=== PATIENT | female | born 1945 | race Caucasian/White ===

== ENCOUNTER 2016-08-24 02:26 | Inpatient (IN) | payer OTHER ==
--- NOTE | ~2016-08-24 | HP ---
History And Physical [address] [place]. [address] NAME: ROCHELLE SOLOMON : 41 STATUS : ADM IN [facility]#: [id number] AGE: 70 ADM/REG DATE : 08/24/16 MR#: [id number] REPORT SERV DATE: 08/24/16 DICTATED BY: ANAIS STONE DATE: 08/24/16 REPORT STATUS : Draft TRANSCRIBED BY: KEVIN DATE: 08/24/16 DATE OF ADMISSION: 08/24/2016 CHIEF COMPLAINT: A 70-year-old female presenting with a fall and right hip fracture. HISTORY OF PRESENT ILLNESS: The patient's history was obtained through careful interview with the patient and daughter, coupled with review of [facility] and [facility] medical records. The patient was cleaning her kitchen and lost balance and fell to the ground, and was on the floor for a few minutes before she called her sons to help her out. She describes right hip pain aching quality, 10/10 severity, exacerbated by any kind of movement or attempt to bear weight. When she fell there was no closed head injury. No loss of consciousness. No preceding lightheadedness. She believes that she has been having chronic right ankle issues and instability, and which "gives out" occasionally and this likely led to the fall tonight. No dizziness. No shortness of breath. No chest pain. The patient describes chronic sinus drainage issues. REVIEW OF SYSTEMS: Otherwise, 14-point review of systems was obtained and was negative. PAST MEDICAL HISTORY: 1. COPD. 2. Coronary artery disease, status post stent placement under the care of Dr. Morris. 3. Gout. 4. Anxiety and depression. 5. Epistaxis. 6. Diabetes. 7. History of severe hyponatremia. 8. Gastroparesis. 9. Tardive dyskinesia from Reglan. PAST SURGICAL HISTORY: 1. Sinus surgery. 2. Hysterectomy with oophorectomy. 3. Cholecystectomy. ALLERGIES: TO REGLAN. SOCIAL HISTORY: The patient is a smoker. Does not drink alcohol. She helps care for her grandchildren. She lives in [place] She is retired from doing factory work. History And Physical [address] [place] [address] NAME: ROCHELLE SOLOMONBETH : 41 STATUS : ADM IN PAT#: [id number] AGE: 70 ADM/REG DATE : 08/24/16 MR#: [id number] REPORT SERV DATE: 08/24/16 DICTATED BY: ANAIS STONE DATE: 08/24/16 REPORT STATUS : Draft TRANSCRIBED BY: KEVIN DATE: 08/24/16 She is . She lives with two of her sons and right now. FAMILY HISTORY: Diabetes and Alzheimer's dementia. CURRENT MEDICATIONS: 1. Norvasc 5 mg p.o. b.i.d. 2. Aspirin 81 mg daily. 3. Calcium vitamin D. 4. Uloric 40 mg daily. 5. Fenofibrate 160 mg p.o. daily. 6. Iron 325 mg daily. 7. Lisinopril 20 mg p.o. b.i.d. 8. Ativan 0.5 mg p.o. b.i.d. scheduled. 9. Metoprolol-XL 50 mg p.o. daily. 10.Multivitamin daily. 11.Prilosec 20 mg p.o. b.i.d. 12.Zantac 150 mg p.o. b.i.d. 13.Zocor 40 mg daily. 14.Aldactone 25 mg daily. 15.Sucralfate 1 g p.o. four times a day. 16.Restoril 15 mg p.o. q.h.s. 17.Brilinta 90 mg p.o. b.i.d. PHYSICAL EXAMINATION: VITAL SIGNS: Temperature 98.3, pulse 58, blood pressure 152/72, respiratory rate 18, and O2 saturation 97% on room air. GENERAL: A pleasant, cooperative female, in evidence of some distress secondary to hip pain. HEENT: Pupils equal, round, and reactive to light. No conjunctival pallor. No scleral icterus. Nares are patent. Oropharynx is clear of obstruction. Moist mucous membranes. NECK: Trachea midline. No thyromegaly. LYMPH: No cervical lymphadenopathy. No supraclavicular lymphadenopathy. RESPIRATORY: Clear to auscultation at bases. No wheezes, rales, or rhonchi. Normal respiratory effort. CARDIOVASCULAR: Bradycardic. Regular rhythm. No murmurs, rubs, or gallops. No extremity edema is appreciated. ABDOMEN: Soft, nontender, and nondistended. Normal bowel sounds auscultated throughout. No hepatosplenomegaly. DERMATOLOGIC: Warm and dry extremities. No pallor. No cyanosis. PSYCHIATRIC: Normal affect. Good mood. Alert and oriented x3. LABORATORY DATA: White blood cell count 9.9, hemoglobin 12, hematocrit 36, and platelets 293. Sodium 136, potassium 4.2, chloride 104, bicarb 22, BUN 15, creatinine 0.0, and glucose 96. Troponin negative. History And Physical [address] [address] NAME: ROCHELLE SOLOMON : 41 STATUS : ADM IN [facility]#: [id number] AGE: 70 ADM/REG DATE : 08/24/16 MR#: [id number] REPORT SERV DATE: 08/24/16 DICTATED BY: ANAIS STONE DATE: 08/24/16 REPORT STATUS : Draft TRANSCRIBED BY: KEVIN DATE: 08/24/16 STUDIES: 1. EKG by my own evaluation shows sinus bradycardia. 2. A CT scan of the brain was reported as being negative. 3. X-ray of the right hip was reported as showing fracture. ASSESSMENT AND PLAN: 1. Right hip fracture. Consult Orthopedic surgeon, Dr. Nguyen, and place on IV narcotic pain management. 2. Coronary artery disease. No chest pain. History of stent placement. Consult Dr. José Miguel Morris, field technical support consultant. The patient on aspirin and Brilinta. 3. Chronic obstructive pulmonary disease. Counseled tobacco abstinence. No wheezes. Place Duo nebulizers. KPL/MODL Anais Stone M.D. / [id number] CC: Lisseth Lopez M.D. Gordon Graham, M.D.
--- NOTE | ~2016-08-24 | OP ---
Record Of Operation [address] [place]. [address] NAME: ROCHELLE SOLOMON : 41 STATUS : ADM IN [facility]#: [id number] AGE: 70 ADM/REG DATE : 08/24/16 MR#: [id number] REPORT SERV DATE: 08/25/16 DICTATED BY: ROBER ARROYO DATE: 08/25/16 REPORT STATUS : Draft TRANSCRIBED BY: MODL DATE: 08/25/16 DATE OF PROCEDURE: 08/24/2016 PREOPERATIVE DIAGNOSIS: Right femoral neck fracture, nondisplaced. POSTOPERATIVE DIAGNOSIS: Right femoral neck fracture, nondisplaced. PROCEDURE: Right femoral neck closed reduction and internal fixation. SURGEON: Keny Arroyo M.D. FORMULATION TECHNICIAN: See chart. DESCRIPTION OF PROCEDURE: The patient was taken to the operating room and placed supine on the table in normal fashion without incident. MAC-type anesthetic was induced. Local was infiltrated after sterile prep along with lateral cortex. The percutaneous guidewire was placed in the center of the head in AP and lateral views, this was followed by small incision and a parallel pin guide was used to place two other pins. Again, checked on AP and lateral views, this was followed by depth gauge and drilling the near cortex. Self- drilling and self-tapping screws were placed and tightened. These were checked in AP and lateral views. Guidewires were removed. Wound irrigated, closed, dressed sterilely. The patient was awakened and taken to the postanesthesia care unit without incident. COMPLICATIONS: None. SPECIMENS: None. ESTIMATED BLOOD LOSS: Trace. WTB/KEVIN Keny Arroyo M.D. / [id number] CC: Lisseth Landers M.D.
--- NOTE | ~2016-08-24 | DS ---
Discharge Summary [facility] [address] [place]. [address] NAME: ROCHELLE SOLOMON : 41 STATUS : DIS IN PAT#: [id number] AGE: 70 ADM/REG DATE : 08/24/16 MR#: [id number] REPORT SERV DATE: 08/27/16 DICTATED BY: ADARSH MATHEW DATE: 08/26/16 REPORT STATUS : Draft TRANSCRIBED BY: MODL DATE: 08/26/16 ADMISSION DATE: 08/24/2016 DISCHARGE DATE: 08/26/2016 CONSULTANTS: Keny Nguyen M.D., Orthopedics; José Miguel Morris M.D., Cardiology. DISCHARGE DIAGNOSES: 1. Acute traumatic fracture right hip requiring surgical repair. 2. Acute blood loss anemia. 3. Coronary disease with percutaneous coronary intervention to the first diagonal in 03/2016 with drug-eluting stents. 4. Chronic obstructive pulmonary disease in a smoker. 5. History of gout. 6. History of Reglan causing tardive dyskinesia in the past. 7. Stage 2 chronic kidney disease. 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 9. Generalized anxiety with insomnia, taking two benzodiazepine medications at home. HISTORY: This patient reportedly fell in the kitchen when she lost her balance, was there for a very short time. When her family arrived, they were not able to get her up. They took her by ambulance to the [facility]. CT of the brain on 08/24/2016 revealed no acute intracranial abnormality. She was found to have a hip fracture and transferred to our facility, and our team was asked to take care of her in the hospital. She was found to have a right hip fracture, and Dr. Nguyen saw her and she was evaluated by Dr. José Miguel Morris, her cement mason highways and streets, who indicated the patient was medically cleared. The patient underwent surgical correction of that right femoral neck fracture on 08/24/2016. Postop, she had a mild acute blood loss anemia with her lowest hemoglobin of 11.1. She had a bump in her white count after she got Decadron ordered by her orthopedic surgeon. She has been having moderate cough but not a whole lot more than her baseline. We talked about the importance of leaving off cigarettes and tobacco completely, and she seems motivated to do that. She is not having any significant tobacco withdrawal at this point in time. She has ambulated remarkably well with physical therapy, and if they agree, then she will go home with family. There are adult family members who will be with her 05/12. She will also have home health PT to assess and treat. We have asked Case Management to arrange for a walker or wheelchair and a bedside commode and home nurse to draw PT/INR two times per week with the first PT/INR to be done on 08/29/2016. The patient got two doses of Coumadin 2.5 mg each. Her INR went up from 1.1 to 2.0 very quickly. The Pharmacy team that manages Coumadin and I talked. We felt like given her age, her small body size, and the rapid rise of her Coumadin, we should hold her Coumadin for the next three nights then start with 1 mg each evening on 08/29/2016 with a goal of INR 2.0 to 3.0. Discharge Summary [address] [address] NAME: ROCHELLE SOLOMON : 41 STATUS : DIS IN PAT#: [id number] AGE: 70 ADM/REG DATE : 08/24/16 MR#: [id number] REPORT SERV DATE: 08/27/16 DICTATED BY: ADARSH MATHEW DATE: 08/26/16 REPORT STATUS : Draft TRANSCRIBED BY: KEVIN DATE: 08/26/16 Cardiology wants her to be on aspirin, and they want her to start Brilinta back as soon as Orthopedic Surgery, Dr. Nguyen, has approved. Dr. Nguyen has indicated six weeks before he will allow resumption of the Brilinta. The patient is to follow up with PCP Dr. Estefany Ayon in one to two weeks and with Dr. Nguyen of Orthopedics in two weeks. Again, home health will consist of PT to assess and treat and RN to be drawing a PT/INR two times per week and for a walker, wheelchair, and bedside commode. DISCHARGE MEDICATIONS: Norvasc 5 mg twice a day; aspirin 81 mg daily; Os-Michel once daily 500 mg; Zantac 150 mg b.i.d.; fenofibrate 160 mg p.o. daily; ferrous sulfate 325 mg daily; Uloric 40 mg at bedtime; lisinopril 40 mg at bedtime (creatinine at discharge 0.84); Ativan 0.5 mg b.i.d. which she takes routinely (we have told them to hold it if sedated); multivitamin once a day; Toprol-XL 50 mg daily; Prilosec 20 mg b.i.d.; Zocor 40 mg at bedtime; spironolactone 25 mg daily (potassium level at discharge 3.5); Carafate 1 g q.i.d.; temazepam 15 mg at bedtime which she states she takes scheduled (hold if sedated especially since she is already on Ativan); Tylenol 650 q.4 hours p.r.n. mild pain; Mylanta p.r.n. indigestion; Dulcolax tablets p.r.n. constipation; [place] 7.5/325 one p.o. q.4 hours p.r.n. pain, #35 prescribed; milk of magnesia p.r.n.; ondansetron ODT 4 mg t.i.d. p.r.n. nausea, #10 prescribed; MiraLAX powder [id number] p.r.n. constipation; Coumadin 1 mg p.o. at bedtime to start on 08/29/2016 and directed by PCP with the dosing thereafter. We gave her 30 of the 1 mg tablets on prescription, and then Dr. Nguyen says okay to restart Brilinta 90 mg b.i.d. 6 weeks postop. I spent 38 minutes with the patient and with discharge plan today. BEVERLY/KEVIN Adarsh Mathew M.D. / [id number] CC: Lisseth Landers M.D. W. Timothy Ballard, M.D. Gordon Graham, M.D.
--- NOTE | ~2016-08-24 | PREOPHP ---
PreOp History and Physical [address] [place]. [address] NAME: ROCHELLE SOLOMON : 41 STATUS : ADM IN PAT#: [id number] AGE: 70 ADM/REG DATE : 08/24/16 MR#: [id number] REPORT SERV DATE: 08/25/16 DICTATED BY: ROBER NGUYEN DATE: 08/24/16 REPORT STATUS : Draft TRANSCRIBED BY: MODL DATE: 08/24/16 CHIEF COMPLAINT: Right hip pain. HISTORY: This is a 70-year-old female who tripped and fell and injured her right hip. She denies pain or injury elsewhere. No associated loss of consciousness, shortness of breath, chest pain, etc. ALLERGIES: ADHESIVE. MEDICATIONS: See chart. PAST MEDICAL HISTORY: Dyskinesia, dysphagia, hypertension, hypercholesterolemia, gout, GERD, anxiety, and depression. PAST SURGICAL HISTORY: Hysterectomy, cholecystectomy, ovaries removed, sinus surgery 6 years ago, and . She reports a recent coronary stent for coronary artery disease. SOCIAL HISTORY: A pack a day cigarettes for 50 years. No alcohol or illicit drug use. Here with daughter. FAMILY HISTORY: No known anesthetic complications. REVIEW OF SYSTEMS: As above, with her recent stent in March. PHYSICAL EXAMINATION: GENERAL: She is alert and oriented x3, in no apparent distress. HEENT: Atraumatic, normocephalic. NECK: Supple. CHEST: Symmetric, nontender. LUNGS: Per Medicine evaluation. CV: Regular. ABDOMEN: Soft. No mass. EXTREMITIES: Both upper extremities and left lower extremity without acute trauma. Right hip pain with range of motion. SKIN: Intact. Compartments are supple. 2+ pulses. NEURO: Sensorimotor without deficit. X-RAY: Nondisplaced right femoral neck fracture. ASSESSMENT: Nondisplaced right femoral neck fracture. PLAN: ORIF. Risks, benefits, etc. explained and the patient wishes to proceed. WTB/MODL PreOp History and Physical [address] [place]. [address] NAME: ROCHELLE SOLOMON : 41 STATUS : ADM IN PAT#: [id number] AGE: 70 ADM/REG DATE : 08/24/16 MR#: [id number] REPORT SERV DATE: 08/25/16 DICTATED BY: ROBER NGUYEN DATE: 08/24/16 REPORT STATUS : Draft TRANSCRIBED BY: KEVIN DATE: 08/24/16 Keny Nguyen M.D. / [id number] CC: Vikram Zurita M.D.
--- NOTE | ~2016-08-24 | CN ---
Consultation Report [facility] [id number] [place]. [address] NAME: DUGLAS WEBB : 41 STATUS : ADM IN [facility]#: [id number] AGE: 70 ADM/REG DATE : 08/24/16 MR#: [id number] REPORT SERV DATE: 08/24/16 DICTATED BY: ZULY MORRIS DATE: 08/24/16 REPORT STATUS : Draft TRANSCRIBED BY: MODL DATE: 08/24/16 CONSULTATION DATE OF CONSULTATION: 08/24/2016 Mrs. Duglas Webb is referred for cardiac care status post right hip fracture. CVD PHYSICIAN: Zuly Morris M.D. HISTORY OF PRESENT ILLNESS: Mrs. Webb was entertaining the grand kids and was quite tired when she tripped and fractured her right hip. She is now scheduled for surgery. REVIEW OF SYSTEMS: Negative for chest pain, chest discomfort, palpitations, syncope, presyncope, PND, or FRAZIER. No history of hemorrhage. She does bruise easily. PAST MEDICAL HISTORY: 1. Drug-eluting stent placed in D1 of the LAD five months ago in 03/2016. 2. Hyperlipidemia, currently has enough statin. 3. Hypertension. 4. Gout, on colchicine. 5. End-stage renal disease, stage 2. 6. COPD. SOCIAL HISTORY: She has good family support. She continues to be a light cigarette smoker. FAMILY HISTORY: Negative for early heart disease. PHYSICAL EXAMINATION: VITAL SIGNS: Blood pressure is 132/61, pulse is 56. GENERAL: She is afebrile, resting comfortably. Nutritional status appears adequate. EYES: PERRLA. LUNGS: No labored use of accessory muscles. Without rales or wheezes. COR: PMI is not displaced. No thrills or heaves. NL S1 and S2. No S3, murmur, click or rub. PULSES: Carotids without bruits. ABD: +BS, nontender. EXT: No cyanosis, clubbing or edema. SKIN: No petechiae. NEURO: Alert and oriented. Does not appear anxious or depressed. LABORATORY EVALUATION: Cardiac troponins are negative. Rhythm is sinus. EKG is not available for review; we will obtain. ASSESSMENT AND PLAN: At this time, we will review the cardiac catheterization and discuss Consultation Report [address]. [address] NAME: DUGLAS WEBB : 41 STATUS : ADM IN PAT#: [id number] AGE: 70 ADM/REG DATE : 08/24/16 MR#: [id number] REPORT SERV DATE: 08/24/16 DICTATED BY: ZULY MORRIS DATE: 08/24/16 REPORT STATUS : Draft TRANSCRIBED BY: MODL DATE: 08/24/16 risk of stopping the Brilinta at [address] Nguyen. Thank you very much. NERY/KEVIN Zuly Morris M.D. / [id number] CC: Lisseth Lopez M.D.
[~2016-08-24 02:26] MED LIST: AMB10 PO; ASAB PO; ATV.5 PO; ATV1 PO; BRILINTA90 MG PO; CALAN SR180 MG PO; CAT1 PO; CAT2 PO; COLCRYS0.6 MG PO; FERROUS SULF325 M1 PO; FISH OIL; ISOPTINSR PO; LEXAPRO20 PO; LIPITOR40 PO; LISINOPRIL40 MG PO; MULTIVIT/MIN PO; PRAVAC PO; PRAVASTATIN PO; PRILO PO; PRILOSEC PO; PROVENTSOL INH; REST15 PO; Relafen PO; SPIRO25 PO; SPIRONOLACTONE; SUCR PO; SYMM100 PO; TART CHERRY PO; ULORIC PO; ULORIC40 MG PO; VERAPAMIL; ZOCOR40 PO
[2016-08-24] MEDS ORDERED: PRIN20 PO (02:41)
[2016-08-24] MEDS ORDERED: ZOCOR40 PO (02:41)
[2016-08-24] MEDS ORDERED: LOFIB160 PO (02:42)
[2016-08-24] MEDS ORDERED: TOPXL50 PO (02:42)
[2016-08-24] MEDS ORDERED: NORV5 PO (02:43)
[2016-08-24] MEDS ORDERED: ZANTAC150 MG PO (02:43)
[2016-08-24] MEDS ORDERED: OS500+D PO (02:44)
[2016-08-24 06:45] LABS: ASCORBIC ACID (UR NOT ORDER) NEG (NEG); BILIRUBIN, URINE NEGATIVE (NEG); KETONE, URINE NEGATIVE (NEG); LEUKOCYTE ESTERASE(NOT OR NEG (NEG); WBC (NOT ORDERED) (RFLEX) < 1 (0-5)
[2016-08-24 06:56] LABS: BASOPHILS 0.5 %; BASOPHILS ABSOLUTE 0.06 10/3/uL (0.0-0.16); EOSINOPHILS 2.7 %; EOSINOPHILS ABSOLUTE 0.31 10/3/uL (0.0-0.53); HEMOGLOBIN 12.2 g/dL (12.0-16.0); IMMATURE GRANULOCYTES 0.3 %; IMMATURE GRANULOCYTES ABSOLUTE 0.03 10/3/uL (0.0-0.11); LYMPHOCYTES 20.1 %; LYMPHOCYTES ABSOLUTE 2.31 10/3/uL (0.67-4.30); MEAN CORPUS HGB CONC 34.8 g/dL (32.0-36.0); MEAN CORPUSCULAR HEMOGLOB 30.7 pg (26.0-34.0); MEAN CORPUSCULAR VOLUME 88.4 fL (80-100); MEAN PLATELET VOLUME 9.5 fL (9.2-13.0); MONOCYTES 7.7 %; MONOCYTES ABSOLUTE 0.89 10/3/uL (0.21-1.20); NEUTROPHILS 68.7 %; PLATELET COUNT 292 10/3/uL (150-400); RBC DISTRIBUTION WIDTH 15.2 % (12.0-16.0); RED CELL COUNT 3.97 10/6/uL (4.0-5.6)
[2016-08-24 06:57] LABS: HEMATOCRIT 35.1 % (36.0-48.0); MANUAL DIFF NO %; WHITE BLOOD CELLS 11.5 10/3/uL (4.5-10.5)
[2016-08-24 07:01] LABS: INTERNATIONAL NORMAL RATI 1.1 UNITS (-); PARTIAL THROMBO TIME 36.1 SEC (22.5-37.2)
[2016-08-24 07:17] LABS: A/G RATIO 1.1 (0.7-1.9); ALBUMIN 3.5 G/DL (3.5-5.0); ALKALINE PHOSPHATASE 45 U/L (45-117); BUN (BLOOD UREA NITROGEN) 14 MG/DL (6-23); CALCIUM, SERUM 9.1 MG/DL (8.5-10.4); CHLORIDE, SERUM 107 MMOL/L (96-112); CO2 (CARBON DIOXIDE) 25 MMOL/L (24-34); GFR AFRICAN AMERICAN 65 ML/MIN (>=60); GFR NON AFRICAN AMERICAN 56 ML/MIN (>=60); GLOBULIN 3.3 G/DL (2.5-4.1); GLUCOSE, SERUM 81 MG/DL (60-99); POTASSIUM, SERUM 3.2 MMOL/L (3.5-5.3); SGOT(AST) 34 U/L (5-40); SGPT(ALT) 43 U/L (5-65); SODIUM, SERUM 141 MMOL/L (135-148); TOTAL BILIRUBIN 0.4 MG/DL (0-1.2); TOTAL PROTEIN 6.8 G/DL (6.0-8.5); TROPONIN I <0.02 NG/ML (<0.05)
[2016-08-24] MEDS ORDERED: LISINOPRIL40 MG PO (10:52)
[2016-08-24 23:01] LABS: INTERNATIONAL NORMAL RATI 1.1 UNITS (-); PROTIME (NOT ORD) 14.5 SEC (12.0-14.5)
[2016-08-25 05:24] LABS: BASOPHILS 0.3 %; BASOPHILS ABSOLUTE 0.04 10/3/uL (0.0-0.16); EOSINOPHILS 0.2 %; EOSINOPHILS ABSOLUTE 0.02 10/3/uL (0.0-0.53); HEMATOCRIT 34.9 % (36.0-48.0); HEMOGLOBIN 11.9 g/dL (12.0-16.0); IMMATURE GRANULOCYTES 0.3 %; IMMATURE GRANULOCYTES ABSOLUTE 0.04 10/3/uL (0.0-0.11); LYMPHOCYTES 10.3 %; LYMPHOCYTES ABSOLUTE 1.25 10/3/uL (0.67-4.30); MEAN CORPUS HGB CONC 34.1 g/dL (32.0-36.0); MEAN CORPUSCULAR HEMOGLOB 30.7 pg (26.0-34.0); MEAN CORPUSCULAR VOLUME 89.9 fL (80-100); MEAN PLATELET VOLUME 9.9 fL (9.2-13.0); MONOCYTES 7.4 %; NEUTROPHILS 81.5 %; NEUTROPHILS ABSOLUTE 9.89 10/3/uL (2.02-8.40); PLATELET COUNT 304 10/3/uL (150-400); RBC DISTRIBUTION WIDTH 15.1 % (12.0-16.0); RED CELL COUNT 3.88 10/6/uL (4.0-5.6); WHITE BLOOD CELLS 12.1 10/3/uL (4.5-10.5)
[2016-08-25 05:26] LABS: INTERNATIONAL NORMAL RATI 1.1 UNITS (-); PROTIME (NOT ORD) 14.5 SEC (12.0-14.5)
[2016-08-25 05:38] LABS: MANUAL DIFF NO %
[2016-08-25 06:06] LABS: BUN (BLOOD UREA NITROGEN) 13 MG/DL (6-23); CALCIUM, SERUM 9.5 MG/DL (8.5-10.4); CHLORIDE, SERUM 103 MMOL/L (96-112); CO2 (CARBON DIOXIDE) 23 MMOL/L (24-34); CREATININE 1.05 MG/DL (0.55-1.02); GFR AFRICAN AMERICAN 61 ML/MIN (>=60); GFR NON AFRICAN AMERICAN 53 ML/MIN (>=60); SODIUM, SERUM 138 MMOL/L (135-148)
[2016-08-25 06:08] LABS: GLUCOSE, SERUM 100 MG/DL (60-99); POTASSIUM, SERUM 3.9 MMOL/L (3.5-5.3)
[2016-08-26 05:12] LABS: BASOPHILS 0.1 %; BASOPHILS ABSOLUTE 0.02 10/3/uL (0.0-0.16); EOSINOPHILS 0.1 %; EOSINOPHILS ABSOLUTE 0.01 10/3/uL (0.0-0.53); HEMATOCRIT 31.8 % (36.0-48.0); HEMOGLOBIN 11.1 g/dL (12.0-16.0); IMMATURE GRANULOCYTES 0.3 %; IMMATURE GRANULOCYTES ABSOLUTE 0.04 10/3/uL (0.0-0.11); LYMPHOCYTES 9.7 %; LYMPHOCYTES ABSOLUTE 1.54 10/3/uL (0.67-4.30); MEAN CORPUS HGB CONC 34.9 g/dL (32.0-36.0); MEAN CORPUSCULAR HEMOGLOB 30.8 pg (26.0-34.0); MEAN CORPUSCULAR VOLUME 88.3 fL (80-100); MEAN PLATELET VOLUME 9.8 fL (9.2-13.0); MONOCYTES 8.2 %; NEUTROPHILS 81.6 %; NEUTROPHILS ABSOLUTE 13.02 10/3/uL (2.02-8.40); PLATELET COUNT 267 10/3/uL (150-400); RBC DISTRIBUTION WIDTH 14.5 % (12.0-16.0); WHITE BLOOD CELLS 15.9 10/3/uL (4.5-10.5)
[2016-08-26 05:15] LABS: MANUAL DIFF NO %
[2016-08-26 05:27] LABS: PROTIME (NOT ORD) 22.7 SEC (12.0-14.5)
[2016-08-26 05:41] LABS: BUN (BLOOD UREA NITROGEN) 16 MG/DL (6-23); CHLORIDE, SERUM 105 MMOL/L (96-112); CO2 (CARBON DIOXIDE) 24 MMOL/L (24-34); CREATININE 0.84 MG/DL (0.55-1.02); GFR AFRICAN AMERICAN 80 ML/MIN (>=60); GFR NON AFRICAN AMERICAN 69 ML/MIN (>=60); GLUCOSE, SERUM 97 MG/DL (60-99); POTASSIUM, SERUM 3.5 MMOL/L (3.5-5.3); SODIUM, SERUM 139 MMOL/L (135-148)
[2016-08-26] MEDS ORDERED: ATV.5 (15:46)
[2016-08-26] MEDS ORDERED: REST15 (15:47)
[2016-08-26] MEDS ORDERED: ZOFRAN ODT4 MG PO (15:48)
[2016-08-26] MEDS ORDERED: C1 PO (15:50)
[2016-08-26] MEDS ORDERED: NORCO1 TA2 PO (15:50)
== END 2016-08-26 16:46 | disposition home health service (06) | DRG 481 ==
LOC: 5NO 02:26 → SDC/OF 16:44 → PACU 20:14 → 3SO 21:35
PROVIDERS: Hospitalist; Internal Medicine; Specialist
PROC: 0QS834Z Reposition Right Femoral Shaft with Internal Fixation Device, Percutaneous Approach (ICD-10-PCS; principal; 2016-08-24 20:15)
DX: S72.001A Fracture of unspecified part of neck of right femur, initial encounter for closed fracture (principal); D62 Acute posthemorrhagic anemia; J44.9 Chronic obstructive pulmonary disease, unspecified; W18.30XA Fall on same level, unspecified, initial encounter; I25.10 Atherosclerotic heart disease of native coronary artery without angina pectoris; F17.210 Nicotine dependence, cigarettes, uncomplicated; Z71.6 Tobacco abuse counseling; E78.5 Hyperlipidemia, unspecified; I12.9 Hypertensive chronic kidney disease with stage 1 through stage 4 chronic kidney disease, or unspecified chronic kidney disease; N18.2 Chronic kidney disease, stage 2 (mild); K21.9 Gastro-esophageal reflux disease without esophagitis
CPT/HCPCS: 71010; 76000; 80048; 80053; 81001; 82962; 83735; 83880; 84443; 84484; 85025; 85610; 85730; 93005; 94640; 97110-GP; 97116-GP; 97161-GP; 97165-GO; 97535-GO; A9270-GY; C1713; J0690; J1885; J2250; J2274; J2405; J2795; J3010